=== PATIENT | male | born 1990 | race Two or more races ===

== ENCOUNTER 2017-03-11 23:50 | Emergency (ER) | payer SELFPAY ==
[~2017-03-11] VITALS: Ht 175.3 cm; Wt 124.7 kg
[~2017-03-11 23:50] MED LIST: ALBUTEROL17 GM IH; NAPROXEN500 MG PO; PREDNISONE20 MG PO; PROVENTIL,2.5 MG/3 M IH; ZITHROMAX Z-PA250 MG PO
[2017-03-12 01:06] LABS: HEMATOCRIT 45.7 % (38.0-50.0); MCH 26.8 PG (29.0-34.0); MCHC 33.3 G/DL (30.0-36.0); MCV 80.5 FL (86-99); PLATELET COUNT 343 K/uL (156-360); RBC DIS.WIDTH-SD 37.5 % (39-53); RED BLOOD COUNT 5.68 M/uL (4.00-5.50)
[2017-03-12 01:15] LABS: CHLORIDE 101 mEq/L (99-109); POTASSIUM 3.8 mEq/L (3.7-5.4); SODIUM 138 mEq/L (136-147)
[2017-03-12 01:17] LABS: GLUCOSE 99 mg/dL (70-99)
[2017-03-12 01:18] LABS: ANION GAP 11 MEQ/L (2-14)
[2017-03-12 01:21] LABS: GFR ESTIMATE (CALCULATED) > 59 mL/min/
[2017-03-12 01:22] LABS: UREA NITROGEN (BUN) 9 mg/dL (9-23)
[2017-03-12 03:15] LABS: ADD MIUA? YES; BILIRUBIN NEGATIVE; BLOOD NEGATIVE; COLOR AMBER ((YELLOW)); GLUCOSE (STRIP) NEGATIVE; KETONES 5; LEUKOCYTES NEGATIVE; NITRITE NEGATIVE; PROTEIN (STRIP) 100; SPECIFIC GRAVITY 1.032 (1.000-1.030)
[2017-03-12 03:22] LABS: TOTAL BILIRUBIN 0.5 mg/dL (0.0-1.0)
[2017-03-12 03:23] LABS: ALKALINE PHOSPHATASE 124 IU/L (3-129)
[2017-03-12 03:25] LABS: DIRECT BILIRUBIN 0.2 mg/dL (0.0-0.3)
[2017-03-12 03:26] LABS: LIPASE 9 U/L (1.0-51.0)
[2017-03-12 03:35] LABS: BACTERIA RARE /HPF; CASTS NONE SEEN /LPF; CRYSTALS NONE SEEN; EPITHELIAL CELLS RARE /HPF; MUCUS 3+ /LPF; RED BLOOD CELLS 0-5 /HPF (0-5); UCUL ADDED? NO; WHITE BLOOD CELLS 0-5 /HPF (0-5)
[2017-03-12] MEDS ORDERED: ZOFRAN4 MG PO (05:54)
[2017-03-12 06:36] VITALS: BP 131/82
== END 2017-03-12 06:38 | disposition home or self-care (01) ==
LOC: EME 23:50
DX: R10.11 Right upper quadrant pain (principal); R82.99 Other abnormal findings in urine; R30.0 Dysuria; M54.9 Dorsalgia, unspecified; J45.909 Unspecified asthma, uncomplicated
CPT/HCPCS: 71020; 74176; 80048; 80076; 81003; 83690; 85027; 99281; 99284; J7030

== ENCOUNTER 2017-08-13 16:53 | Emergency (ER) | payer OTHER ==
[~2017-08-13] VITALS: Ht 175.3 cm; Wt 128.8 kg
[~2017-08-13 16:53] MED LIST changes: +ZOFRAN4 MG PO
[2017-08-13] MEDS ORDERED: DELTASONE20 M1 PO (18:37)
[2017-08-13] MEDS ORDERED: SINGULAIR10 MG PO (18:37)
[2017-08-13 19:18] VITALS: BP 143/78
== END 2017-08-13 19:28 | disposition home or self-care (01) ==
LOC: EME 16:53
DX: J45.901 Unspecified asthma with (acute) exacerbation (principal)
CPT/HCPCS: 71046; 94640; 99281; 99284; J7512